=== PATIENT | female | born 1940 | race Two or more races ===

== ENCOUNTER 2017-08-01 11:40 | Emergency (ER) | payer MEDICARE, BC ==
[~2017-08-01] VITALS: Ht 154.9 cm; Wt 55.3 kg
--- NOTE | 2017-08-01 11:44 | NUR ---
PATIENT BIB [facility] C/O LEFT KNEE AND RIGHT SHOULDER PAIN, S/P TRIP AND FALL AT HOME. PATIENT IS A/OX 4. BREATHING EVEN AND UNLABORED. NO SOB. VITALS STABLE. SAFETY AND COMFORT MEASURES IN PLACE. AWAITING MD ORDERS.
[2017-08-01 11:45] VITALS: BP 122/76
[2017-08-01] MEDS ORDERED: ACETAMINOPHEN ES 500 MG TABLET PO ONE (12:00)
[2017-08-01] MEDS ORDERED: ACETAMINOPHEN ES 500 MG TABLET ONE (12:03)
== END 2017-08-01 13:12 | disposition home or self-care (01) ==
LOC: ER 11:41
DX: S80.02XA Contusion of left knee, initial encounter (principal); S50.01XA Contusion of right elbow, initial encounter; I25.10 Atherosclerotic heart disease of native coronary artery without angina pectoris; K21.9 Gastro-esophageal reflux disease without esophagitis; M19.90 Unspecified osteoarthritis, unspecified site; M81.0 Age-related osteoporosis without current pathological fracture; W01.0XXA Fall on same level from slipping, tripping and stumbling without subsequent striking against object, initial encounter; Y92.89 Other specified places as the place of occurrence of the external cause; Y93.89 Activity, other specified; Y99.8 Other external cause status
CPT/HCPCS: 73564-TC; A4606; A6402; A6403; Z7610